=== PATIENT | male | born 1985 ===

== ENCOUNTER → 2018-12-22 | Outpatient (CLI) | payer OTHER ==
[~2018-12-22] MED LIST: AMOX500 PO; CODACEE120 PO; MULVITA PO
== END | disposition home or self-care (01) ==
LOC: LAB EV 11:58 → LAB SHORT 11:58
DX: R50.9 Fever, unspecified (principal)
CPT/HCPCS: 87070

== ENCOUNTER 2021-06-14 22:23 | Emergency (ER) | payer OTHER ==
[~2021-06-14] VITALS: Ht 175.3 cm; Wt 106.6 kg
== END 2021-06-14 23:07 | disposition home or self-care (01) ==
LOC: ER 22:23
DX: H61.22 Impacted cerumen, left ear (principal); U07.1 COVID-19
CPT/HCPCS: 99283